=== PATIENT | female | born 1935 | race Hispanic/Latino ===

== ENCOUNTER 2022-09-27 12:02 | Outpatient (CLI) | payer MEDICARE, OTHER | END 2022-09-27 12:03 | disposition home or self-care (01) | LOC: CSHLAB 12:02 | PROVIDERS: ATTEND Family Medicine | DX: M54.2 Cervicalgia (principal); G89.29 Other chronic pain; M25.511 Pain in right shoulder; M47.812 Spondylosis without myelopathy or radiculopathy, cervical region; M43.12 Spondylolisthesis, cervical region | CPT/HCPCS: 72050 ==